=== PATIENT | male | born 1945 | race African-American/Black ===

== ENCOUNTER 2017-08-31 11:45 | Emergency (ER) | payer OTHER, MEDICARE ==
[2017-08-31] MEDS ORDERED: Ibuprofen 800 MG TAB ONE (12:19)
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
[2017-08-31] MEDS ORDERED: HYDROcodone/Acetaminophen 5/325 mg Tablet ONE (13:20)
== END 2017-08-31 13:53 | disposition home or self-care (01) ==
LOC: ERS 11:45
DX: S13.9XXA Sprain of joints and ligaments of unspecified parts of neck, initial encounter (principal); S23.3XXA Sprain of ligaments of thoracic spine, initial encounter; I10 Essential (primary) hypertension; Z87.891 Personal history of nicotine dependence; Z79.899 Other long term (current) drug therapy; V43.92XA Unspecified car occupant injured in collision with other type car in traffic accident, initial encounter
CPT/HCPCS: 72072; 72125

== ENCOUNTER 2017-09-06 07:43 | Emergency (ER) | payer MEDICARE ==
[2017-09-06] MEDS ORDERED: Ketorolac Tromethamine 60 MG/2 ML VIAL ONE (08:32)
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
== END 2017-09-06 10:03 | disposition home or self-care (01) ==
LOC: ERS 07:43
DX: S39.012A Strain of muscle, fascia and tendon of lower back, initial encounter (principal); I10 Essential (primary) hypertension; Z87.891 Personal history of nicotine dependence; Z79.899 Other long term (current) drug therapy; V49.9XXA Car occupant (driver) (passenger) injured in unspecified traffic accident, initial encounter
CPT/HCPCS: 72100; 96372; J1885

== ENCOUNTER 2017-12-20 10:19 | Outpatient (CLI) | payer MEDICARE, MEDICAID ==
[2017-12-20] MEDS ORDERED: Gadobenate Dimeglumine 529 MG/1 ML (20ML VIAL) ONE (11:23)
--- NOTE | 2017-12-20 15:23 | MRI ---
MRI OF ABDOMEN WITH AND WITHOUT CONTRAST 12/20/17 HISTORY: Followup treatment response of hepatic mass. COMPARISON: Multiple prior examinations at outside facility. FINDINGS: The mass in the hepatic dome, segment VIII has minimal peripheral enhancement with delayed fill-in. T his mass measures approximately 0.9 x 1 cm, slight decrease in the comparison exam. This indicates a positive treatment response. There is, however, what appears to be a new area of arterial hyperenhanc ement in hepatic segment V, series 9, image 1025 measuring up to 1.6 cm with arterial phase hyperenha ncement and portal venous washout. Left renal cysts and right renal cysts are similar. Aortic contour is normal. The pancreas is unremarkable. The spleen is unremarkable. Skeleton is unremarkable. IMPRESSION: 1. Interval treatment response hepatic dome mass with delayed internal enhancement likely sequel a of granulation tissue. 2. New arterial phase hyperenhancing mass measuring 1.6 cm hepatic segment V, series 9, image 10 25 with portal venous washout. This is concerning for a new focus of disease. 3. Similar appearance of renal cysts. Code T POS: [facility]
== END 2017-12-20 10:20 | disposition home or self-care (01) ==
LOC: BICMRI 10:19
PROVIDERS: ATTEND Internal Medicine
DX: C22.0 Liver cell carcinoma (principal); B19.20 Unspecified viral hepatitis C without hepatic coma; R16.0 Hepatomegaly, not elsewhere classified; N28.1 Cyst of kidney, acquired
CPT/HCPCS: 74183; 82565; A9579

== ENCOUNTER 2018-07-09 08:08 | Outpatient (CLI) | payer MEDICARE, MEDICAID ==
--- NOTE | 2018-07-09 09:38 | MRI ---
MRI Abdomen W WO Con History: [Chronic hepatitis. Hepatocellular carcinoma.] Comparison: MRI abdomen with and without contrast December 20, 2017 Findings: Multiplanar multisequence MRI of the abdomen performed prior to and after the intravenous a dministration of contrast. There is continued size decrease of the hepatic segment 8 mass at the dome of the liver measuring 5-6 mm. The arterial enhancing mass within hepatic segment 5 had previously measured 1.6 cm in AP dimension n ow measures approximately 2.2 cm. No new abnormal focal area of arterial hyperenhancement within the liver. The hepatic segment 5 mass does have portal venous washout. The portal vein is patent. Renal cysts are similar. No abnormal enhancing renal mass. There is a nonenhancing T2 hyperintense focus along the ventral aspect of the pancreatic body measuri ng 4 mm. Spleen is unremarkable. Adrenal glands are unremarkable. Small theodore hepatis lymph nodes. Impression: 1. Interval size increase of the hepatic segment V arterial enhancing mass with washout indicating di sease progression. No new foci of abnormal hyperenhancing hepatic masses. Portal vein is patent. 2. 4 mm cystic mass ventral pancreatic body. Close attention on follow-up imaging recommended.
[2018-07-09] MEDS ORDERED: Gadobenate Dimeglumine 529 MG/1 ML (20ML VIAL) ONE (16:58)
== END 2018-07-09 08:09 | disposition home or self-care (01) ==
LOC: MRI 08:08
PROVIDERS: ATTEND Physician Assistant Medical
DX: C22.0 Liver cell carcinoma (principal); B18.2 Chronic viral hepatitis C; K86.2 Cyst of pancreas; R16.0 Hepatomegaly, not elsewhere classified
CPT/HCPCS: 74183; 82565

== ENCOUNTER 2018-09-01 12:44 | Emergency (ER) | payer MEDICARE, MEDICAID | END 2018-09-01 13:25 | disposition home or self-care (01) | LOC: ERS 12:44 | DX: L29.9 Pruritus, unspecified (principal); T44.7X5A Adverse effect of beta-adrenoreceptor antagonists, initial encounter; Z87.891 Personal history of nicotine dependence | CPT/HCPCS: 99283 ==

== ENCOUNTER 2019-08-08 10:09 | Outpatient (CLI) | payer MEDICARE ==
[~2019-08-08 10:09] MED LIST: Magnevist 469MG/ML 20 ML VIAL ONE
--- NOTE | 2019-08-11 14:48 | MRI ---
MRI ABDOMEN WITH AND WITHOUT CONTRAST: HISTORY: Liver mass. C225, hepatic carcinoma. COMPARISON: Multiple prior MRIs. The most recent post contrast MRI is from 2019. FINDINGS: There is significant capsular retraction involving hepatic segments 4A, 4B, 5, 6, and 7. There is ca vity containing hemorrhage hepatic segment 4A and 4B with no significant internal enhancement. Previ ously noted hepatic segment 5 mass no longer has arterial hyperenhancement and washout and is intermi xed with a post-treatment scar. There are other peripherally enhancing necrotic foci in hepatic segm ent 8 near the dome. These are likely small treated satellite lesions. There is no dominant enhancing mass appreciated. Small right cardiophrenic lymph node is not enlarge d. No theodore hepatis adenopathy. Multiple cysts in the kidneys. No hydronephrosis. The aortic contour is normal. Background marrow signal is normal. No free fluid. There is compensatory hypertrophy of the left lobe of the liver. No dilated loops of bowel. IMPRESSION: 1. LR-TR nonviable. There is no remaining arterial enhancing mass appreciated within the liver. Th ere are mixed areas of necrosis and hemorrhage within cystic areas of liver which indicates treatment response. There is no arterial enhancing mass, only continuously enhancing scar within the treatmen t bed. 2. Patent portal vein. 3. Nonenhancing small satellite areas in hepatic segment 8 near the dome, treatment response, LR-TR not viable. 4. No new abnormal enhancing mass of the liver. POS: [facility]
== END 2019-08-08 10:10 | disposition home or self-care (01) ==
LOC: MRI 10:09
PROVIDERS: ATTEND Internal Medicine
DX: C22.0 Liver cell carcinoma (principal); K76.9 Liver disease, unspecified; K74.60 Unspecified cirrhosis of liver
CPT/HCPCS: 74183; 82565; A9579

== ENCOUNTER 2019-12-19 13:54 | Outpatient (CLI) | payer MEDICARE ==
--- NOTE | 2019-12-19 14:44 | ULT ---
Exam: Bilateral renal ultrasound HISTORY: Renal cyst. COMPARISON: 08/03/2016 CORRELATION abdomen MRI 08/08/2019 FINDINGS: Right kidney: Normal cortical echotexture. No hydronephrosis. 1.6 x 1.2 x 1.5 cm cyst in the midpole the right kidney. Right kidney measurements: 10.6 x 5.5 x 5.5 cm. Left kidney: Normal cortical echotexture. No hydronephrosis. There is a anechoic focus in the left ki dney with associated hyperechoic focus that measures 1.0 x 1.5 x 1.6 cm. Overall the anechoic focus measures 2.8 x 2.5 x 3.8 cm. Left kidney measurements 5.9 x 6.3 x 10.6 cm. Urinary bladder: Normal mucosa. 35.4 mL IMPRESSION: 1. Bilateral hydronephrosis 2. Right renal cortical cyst 3. Left renal cyst is identified with interval increased echogenicity which may represent debris or c alcification. No abnormal signal intensity noted in abdomen MRI. Findings may represent a relatively acute process. Follow-up imaging as warranted.
== END 2019-12-19 13:55 | disposition home or self-care (01) ==
LOC: BICULT 13:54
PROVIDERS: ATTEND Urology
DX: N28.1 Cyst of kidney, acquired (principal); N13.30 Unspecified hydronephrosis
CPT/HCPCS: 76770

== ENCOUNTER 2020-06-15 10:13 | Outpatient (CLI) | payer MEDICARE | END 2020-06-15 10:14 | disposition home or self-care (01) | LOC: BICULT 10:13 | PROVIDERS: ATTEND Urology | DX: N28.1 Cyst of kidney, acquired (principal); N28.89 Other specified disorders of kidney and ureter | CPT/HCPCS: 76770 ==

== ENCOUNTER 2021-01-20 08:59 | Outpatient (CLI) | payer MEDICARE, MEDICAID ==
[2021-01-20] MEDS ORDERED: Magnevist 469MG/ML 20 ML VIAL ONE (10:22)
== END 2021-01-20 09:00 | disposition home or self-care (01) ==
LOC: MRI 08:59
PROVIDERS: ATTEND Radiology Radiation Oncology
DX: Z51.0 Encounter for antineoplastic radiation therapy (principal); C22.0 Liver cell carcinoma
CPT/HCPCS: 74183

== ENCOUNTER 2021-03-14 02:12 | Inpatient (IN) | payer MEDICARE, MEDICAID ==
[2021-03-14] MEDS ORDERED: Morphine 4 MG/ML VIAL ONE ×2 (02:52→03:16)
[2021-03-14] MEDS ORDERED: Ondansetron PF 4 MG/2 ML Vial ONE (02:52)
[2021-03-14 03:24] LABS: ALT (SGPT) 43 U/L (8-55); AST (SGOT) 194 U/L (5-34); Albumin 3.5 g/dL (3.4-4.8); Alkaline Phosphatase 401 U/L (40-110); Anion Gap 15 mmol/L (10-20); BUN (Urea Nitrogen) 21 mg/dL (8.4-25.7); Bilirubin, Total 6.7 mg/dL (0.2-1.2); Calc. Creatinine Clearance 0 mL/min (70-130); Carbon Dioxide 25 mmol/L (23-31); Chloride 103 mmol/L (98-107); Glucose 96 mg/dL (83-110); Lipase 117 U/L (8-78); Potassium 3.9 mmol/L (3.5-5.1); Protein, Total 6.5 g/dL (5.8-8.1); Sodium 139 mmol/L (136-145)
[2021-03-14 03:55] LABS: #Eosinphils 0.3 thou/uL (0.0-0.7); #Lymphocytes 1.1 thou/uL (1.20-3.40); #Monocytes 0.9 thou/uL (0.11-0.59); #Neutrophils 4.7 thou/uL (1.40-6.50); %Basophils 0.2 % (0.0-1.0); %Eosinophils 3.8 % (0.0-10.0); %Lymphocytes 16.1 % (21.0-51.0); %Monocytes 12.8 % (0.0-10.0); %Neutrophils 67.2 % (42.0-75.0); Hemoglobin 13.1 g/dL (14.0-18.0); Mean Corpuscular HGB CONC 31.4 g/dL (32.0-36.0); Mean Corpuscular Hemoglobin 34.5 pg (27.0-31.0); Mean Platelet Volume 8.6 fL (7.4-10.4); Platelet Count 138 thou/uL (130-400); RBC Distribution Width 14.5 % (11.5-14.5); Red Blood Cell (RBC) Count 3.78 mill/uL (4.70-6.10)
[2021-03-14 07:36] LABS: Bilirubin Negative (Negative); Blood, Urine Negative (Negative); Clarity Clear (Clear); Glucose, Urine (Dipstick) Normal (Negative); Ketone, Urine Negative (Negative); Leukocyte Negative Leu/uL (Negative); Nitrite Negative (Negative); Protein, Urine (Dipstick) Negative (Neg-Trace); Specific Gravity, Urine 1.042 (1.002-1.036)
[2021-03-14 10:35] LABS: SARS-CoV-2 NAA Rapid Test Not Detected (NotDetected)
[2021-03-14] MEDS ORDERED: Morphine 2 MG/ML VIAL SLOW IVP PRN (11:45)
[2021-03-14] MEDS ORDERED: Ondansetron ODT 4 MG TAB PO PRN (12:30)
[2021-03-14] MEDS ORDERED: Acetaminophen 325 MG TAB PO PRN (12:30)
[2021-03-14] MEDS ORDERED: Ondansetron PF 4 MG/2 ML Vial IVP PRN (12:30)
[2021-03-14] MEDS: Sodium Chloride 0.9% 1,000 ML IV SCH ×2 (12:50→22:54)
[2021-03-14] MEDS: HYDROcodone/Acetaminophen 7.5/325 mg Tablet PO PRN (12:57)
[2021-03-14] MEDS: Heparin 5,000 UNITS/ML VIAL SC SCH ×2 (16:20→21:00)
[2021-03-14] MEDS ORDERED: Zoledronic Acid 4 MG in Sodium Chloride 0.9% 100 ML IVPB SCH (17:00)
[2021-03-14] MEDS: Morphine 4 MG/ML VIAL SLOW IVP PRN (17:02)
[2021-03-14] MEDS ORDERED: FLU VACC QS2021-22(65YR UP)/PF 240 MCG/0.7 ML SYRINGE IM ONE (19:30)
[2021-03-14] MEDS: Pantoprazole 40 MG VIAL IVP SCH (21:00)
[2021-03-15] MEDS: Sodium Chloride 0.9% 1,000 ML IV SCH ×2 (06:06→14:07)
[2021-03-15 06:33] LABS: Anion Gap 12 mmol/L (10-20); BUN (Urea Nitrogen) 19 mg/dL (8.4-25.7); Calc. Creatinine Clearance 79 mL/min (70-130); Calcium 11.7 mg/dL (7.8-10.44); Carbon Dioxide 24 mmol/L (23-31); Chloride 104 mmol/L (98-107); Glucose 88 mg/dL (83-110); Potassium 4.1 mmol/L (3.5-5.1); Sodium 136 mmol/L (136-145)
[2021-03-15 06:39] LABS: Troponin I 0.092 ng/mL (< 0.028)
[2021-03-15] MEDS: Morphine 4 MG/ML VIAL SLOW IVP PRN (06:52)
[2021-03-15 09:18] LABS: Troponin I 0.076 ng/mL (< 0.028)
[2021-03-15] MEDS: Pantoprazole 40 MG VIAL IVP SCH ×2 (09:26→22:24)
[2021-03-15] MEDS: Heparin 5,000 UNITS/ML VIAL SC SCH ×3 (09:26→20:24)
[2021-03-15 11:36] LABS: Troponin I 0.074 ng/mL (< 0.028)
[2021-03-15 20:35] LABS: Hemoglobin 12.1 g/dL (14.0-18.0); Mean Corpuscular HGB CONC 32.5 g/dL (32.0-36.0); Mean Corpuscular Hemoglobin 35.8 pg (27.0-31.0); Red Blood Cell (RBC) Count 3.37 mill/uL (4.70-6.10); White Blood Cell (WBC) Count 10.2 thou/uL (4.8-10.8)
[2021-03-15 20:50] LABS: #Eosinphils 0.2 thou/uL (0.0-0.7); #Lymphocytes 0.9 thou/uL (1.20-3.40); #Monocytes 1.3 thou/uL (0.11-0.59); %Basophils 0.1 % (0.0-1.0); %Eosinophils 2.1 % (0.0-10.0); %Monocytes 12.7 % (0.0-10.0); %Neutrophils 77.1 % (42.0-75.0); MDiff Complete? YES; Macrocytosis MODERATE=16-30 cells (100X) (0-5/hpf); Mean Platelet Volume 9.9 fL (7.4-10.4); Platelet Count 119 thou/uL (130-400); Platelet Morphology Comment Appears Decreased; Polychromasia SLIGHT = 2-3 cells (100X) (0-2/hpf); RBC Distribution Width 14.4 % (11.5-14.5); Target Cells SLIGHT = 2-5 cells (100X) (0-1/hpf)
[2021-03-16] MEDS: Sodium Chloride 0.9% 1,000 ML IV SCH ×4 (01:04→22:09)
[2021-03-16] MEDS ORDERED: Senokot S 8.6-50 MG TAB PO PRN (08:29)
[2021-03-16] MEDS ORDERED: Ondansetron ODT 4 MG TAB PO PRN (08:29)
[2021-03-16] MEDS ORDERED: Bisacodyl 5 MG TAB PO PRN (08:29)
[2021-03-16] MEDS ORDERED: GUAIFENESIN SF SOLN 200 MG/10 ML UDCUP PO PRN (08:29)
[2021-03-16] MEDS ORDERED: Sodium Chloride 0.65% Nasal 44 ML BOT EA NARE PRN (08:29)
[2021-03-16] MEDS ORDERED: Cepastat Lozenges 1 LOZ PO PRN (08:29)
[2021-03-16] MEDS ORDERED: Ondansetron PF 4 MG/2 ML Vial IVP PRN (08:29)
[2021-03-16] MEDS ORDERED: Hydrocerin (Eucerin) Cream 120 gm Jar TOP PRN (08:29)
[2021-03-16] MEDS ORDERED: Artificial Tear Sol 15 ML BOT EA EYE PRN (08:29)
[2021-03-16] MEDS ORDERED: Loperamide HCl 2 MG CAP PO PRN (08:29)
[2021-03-16] MEDS ORDERED: hydrALAZINE 20 MG/ML VIAL SLOW IVP PRN (08:29)
[2021-03-16] MEDS: Pantoprazole 40 MG VIAL IVP SCH ×2 (08:43→22:10)
[2021-03-16] MEDS: HYDROcodone/Acetaminophen 7.5/325 mg Tablet PO PRN (08:44)
[2021-03-16] MEDS ORDERED: Tamsulosin HCl 0.4 MG CAP PO SCH (09:00)
[2021-03-16] MEDS: Heparin 5,000 UNITS/ML VIAL SC SCH ×3 (09:50→22:09)
[2021-03-16] MEDS: Polyethylene Glycol 3350 17 GM Packet PO SCH (10:46)
[2021-03-16] MEDS: Folic Acid 1 MG TAB PO SCH (10:47)
[2021-03-16] MEDS: Tamsulosin HCl 0.4 MG CAP PO SCH (10:47)
[2021-03-16] MEDS: Cyanocobalamin (Vitamin B-12) 1,000 MCG TAB PO SCH (10:47)
[2021-03-17 05:15] LABS: #Eosinphils 0.3 thou/uL (0.0-0.7); #Lymphocytes 0.7 thou/uL (1.20-3.40); #Neutrophils 7.3 thou/uL (1.40-6.50); %Eosinophils 2.7 % (0.0-10.0); %Lymphocytes 7.7 % (21.0-51.0); %Monocytes 11.1 % (0.0-10.0); %Neutrophils 78.4 % (42.0-75.0); Hemoglobin 11.1 g/dL (14.0-18.0); Mean Corpuscular HGB CONC 33.4 g/dL (32.0-36.0); Mean Corpuscular Hemoglobin 36.6 pg (27.0-31.0); Mean Platelet Volume 9.7 fL (7.4-10.4); Platelet Count 100 thou/uL (130-400); RBC Distribution Width 14.6 % (11.5-14.5); Red Blood Cell (RBC) Count 3.02 mill/uL (4.70-6.10); White Blood Cell (WBC) Count 9.4 thou/uL (4.8-10.8)
[2021-03-17] MEDS: Sodium Chloride 0.9% 1,000 ML IV SCH ×3 (05:15→21:43)
[2021-03-17 05:21] LABS: INR-International Normal Ratio 1.1; Prothrombin Time 14.7 sec (12.0-14.7)
[2021-03-17 05:34] LABS: Anion Gap 14 mmol/L (10-20); BUN (Urea Nitrogen) 17 mg/dL (8.4-25.7); Calc. Creatinine Clearance 83 mL/min (70-130); Calcium 10.2 mg/dL (7.8-10.44); Carbon Dioxide 22 mmol/L (23-31); Chloride 106 mmol/L (98-107); Glucose 71 mg/dL (83-110); Sodium 138 mmol/L (136-145)
[2021-03-17 05:36] LABS: ALT (SGPT) 37 U/L (8-55); AST (SGOT) 183 U/L (5-34); Albumin 2.8 g/dL (3.4-4.8); Alkaline Phosphatase 319 U/L (40-110); Bilirubin, Direct 5.4 mg/dL (0.1-0.3); Bilirubin, Total 8.1 mg/dL (0.2-1.2)
[2021-03-17 05:42] LABS: Phosphorus 1.8 mg/dL (2.3-4.7)
[2021-03-17 05:49] VITALS: BMI 34.9
[2021-03-17] MEDS ORDERED: PHOS-NAK 1 PKT PACK PO SCH (06:45)
[2021-03-17] MEDS: Pantoprazole 40 MG VIAL IVP SCH (09:25)
[2021-03-17] MEDS: Lisinopril 5 MG TAB PO SCH (09:26)
[2021-03-17] MEDS: Cyanocobalamin (Vitamin B-12) 1,000 MCG TAB PO SCH (09:26)
[2021-03-17] MEDS: Polyethylene Glycol 3350 17 GM Packet PO SCH (09:26)
[2021-03-17] MEDS: Folic Acid 1 MG TAB PO SCH (09:26)
[2021-03-17] MEDS: Tamsulosin HCl 0.4 MG CAP PO SCH (09:26)
[2021-03-17] MEDS: Morphine 4 MG/ML VIAL SLOW IVP PRN (20:35)
[2021-03-18] MEDS ORDERED: PHOS-NAK 1 PKT PACK PO SCH (09:15)
[2021-03-18] MEDS: Polyethylene Glycol 3350 17 GM Packet PO SCH (09:27)
[2021-03-18] MEDS: Cyanocobalamin (Vitamin B-12) 1,000 MCG TAB PO SCH (09:28)
[2021-03-18] MEDS: Lisinopril 5 MG TAB PO SCH (09:28)
[2021-03-18] MEDS: Tamsulosin HCl 0.4 MG CAP PO SCH (09:28)
[2021-03-18] MEDS: Folic Acid 1 MG TAB PO SCH (09:28)
[2021-03-18 11:50] VITALS: TEMP 98.6
[2021-03-18 12:09] VITALS: BP 130/71
== END 2021-03-18 13:54 | disposition home or self-care (01) | DRG 542 ==
LOC: ERS 02:12 → ERHOLD 08:54 → SURG A 11:43 → OBSVTOIN 11:44 → 2NO 03-15 08:00
PROVIDERS: ADMIT Emergency Medicine; ATTEND Internal Medicine
DX: C79.51 Secondary malignant neoplasm of bone (principal); G93.41 Metabolic encephalopathy; I21.A1 Myocardial infarction type 2; C22.0 Liver cell carcinoma; N17.9 Acute kidney failure, unspecified; I42.9 Cardiomyopathy, unspecified; Z20.822 Contact with and (suspected) exposure to COVID-19; E83.52 Hypercalcemia; I10 Essential (primary) hypertension; M10.9 Gout, unspecified; E66.01 Morbid (severe) obesity due to excess calories; J44.9 Chronic obstructive pulmonary disease, unspecified; D53.9 Nutritional anemia, unspecified; F41.9 Anxiety disorder, unspecified; I44.7 Left bundle-branch block, unspecified; D69.6 Thrombocytopenia, unspecified; F32.A Depression, unspecified; Z87.891 Personal history of nicotine dependence; Z85.46 Personal history of malignant neoplasm of prostate; Z68.35 Body mass index [BMI] 35.0-35.9, adult
CPT/HCPCS: 36415; 70450; 74177; 77014; 77290; 77334; 80048; 80053; 80076; 81003; 82105; 82140; 83690; 83735; 83880; 84100; 84484; 85025; 85610; 93005; 93010; 93306; 96374; 96375; C9113; G0103; G0378; J1644; J2270; J2405; J3489; J3490; J7050; U0002

== ENCOUNTER 2021-03-21 15:45 | Emergency (ER) | payer MEDICARE, MEDICAID ==
[2021-03-21] MEDS ORDERED: Naloxone HCl 0.4 mg/ml Vial ONE ×2 (16:10→17:18)
== END 2021-03-21 17:50 | disposition home or self-care (01) ==
LOC: ERS 15:45
DX: T40.2X1A Poisoning by other opioids, accidental (unintentional), initial encounter (principal); I10 Essential (primary) hypertension
CPT/HCPCS: 96372; 99284; J2310

== ENCOUNTER 2021-04-16 01:50 | Inpatient (IN) | payer MEDICARE, MEDICAID ==
[2021-04-16 02:52] LABS: Hemoglobin 11.4 g/dL (14.0-18.0); Mean Corpuscular HGB CONC 30.9 g/dL (32.0-36.0); Mean Corpuscular Hemoglobin 35.8 pg (27.0-31.0); RBC Distribution Width 17.2 % (11.5-14.5); Red Blood Cell (RBC) Count 3.18 mill/uL (4.70-6.10)
[2021-04-16 03:07] LABS: ALT (SGPT) 42 U/L (8-55); AST (SGOT) 349 U/L (5-34); Alkaline Phosphatase 530 U/L (40-110); Anion Gap 26 mmol/L (10-20); BUN (Urea Nitrogen) 56 mg/dL (8.4-25.7); Bilirubin, Total 14.5 mg/dL (0.2-1.2); Calc. Creatinine Clearance 0 mL/min (70-130); Calcium 10.5 mg/dL (7.8-10.44); Carbon Dioxide 12 mmol/L (23-31); Chloride 113 mmol/L (98-107); Globulin 3.2 g/dL (2.4-3.5); Glucose 106 mg/dL (83-110); Protein, Total 6.2 g/dL (5.8-8.1); Sodium 146 mmol/L (136-145)
[2021-04-16 03:18] LABS: Anisocytosis SLIGHT = 6-15 cells (100X) (0-5/hpf); Band 7 % (5-11); Lymphocytes 15 % (21-51); MDiff Complete? YES; Macrocytosis MODERATE=16-30 cells (100X) (0-5/hpf); Mean Platelet Volume 10.2 fL (7.4-10.4); Metamyelocyte 2 % (0-0); Monocytes 6 % (0-10); Neutrophil 70 % (42-75); Nucleated RBC 3 % (0); Platelet Clumps SLIGHT; Platelet Count 78 thou/uL (130-400); Platelet Morphology Comment Appears Decreased; Polychromasia SLIGHT = 2-3 cells (100X) (0-2/hpf); White Blood Cell (WBC) Count 9.9 thou/uL (4.8-10.8)
[2021-04-16 03:28] LABS: CKMB 4.5 ng/mL (0-6.6)
[2021-04-16 04:21] LABS: Bacteria/HPF None Seen HPF (None Seen); Bilirubin 2+ (Negative); Blood, Urine 1+ (Negative); Clarity Turbid (Clear); Glucose, Urine (Dipstick) Normal (Negative); Ketone, Urine Trace mg/dL (Negative); Leukocyte Negative Leu/uL (Negative); Nitrite Negative (Negative); Protein, Urine (Dipstick) 70 mg/dL (Neg-Trace); Renal Epithelial 0-3 HPF (None Seen); Specific Gravity, Urine 1.019 (1.002-1.036); Squamous Epithelial 0-3 HPF (0-3); Urobilinogen 6 mg/dL (Less than 2); pH, Urine 5.5 (5.0-9.0)
[2021-04-16] MEDS ORDERED: Lorazepam 2 MG/ML VIAL ONE (05:43)
[2021-04-16] MEDS ORDERED: Acetaminophen 325 MG TAB PO PRN (07:44)
[2021-04-16] MEDS: cefTRIAXone\\ROCEPHIN 1 GM in Sodium Chloride 0.9% 100 ML IVPB SCH (09:00)
[2021-04-16] MEDS ORDERED: Azithromycin 500 MG VIAL ONE (09:14)
[2021-04-16] MEDS ORDERED: Pantoprazole 40 MG VIAL ONE (09:14)
[2021-04-16] MEDS ORDERED: cefTRIAXone\\ROCEPHIN 1 GM VIAL ONE (09:14)
[2021-04-16] MEDS: Azithromycin 500 MG in Sodium Chloride 0.9% 250 ML 250 ML IVPB SCH (09:45)
[2021-04-16] MEDS: Pantoprazole 40 MG VIAL IVP SCH (09:53)
[2021-04-16] MEDS: Sodium Bicarbonate 100 MEQ in Dextrose 5% in Water 1,000 ML IV SCH (10:05)
[2021-04-16 10:33] LABS: SARS-CoV-2 NAA Rapid Test Not Detected (NotDetected)
[2021-04-16 11:01] LABS: Creatinine, Urine 187.54 mg/dL (63-166)
[2021-04-16 15:32] LABS: Lactic Acid 3.7 mmol/L (0.5-2.2)
[2021-04-16 15:42] LABS: Troponin I 0.122 ng/mL (< 0.028)
[2021-04-16] MEDS ORDERED: FLU VACC QS2021-22(65YR UP)/PF 240 MCG/0.7 ML SYRINGE IM ONE (17:00)
[2021-04-16 18:01] LABS: Troponin I 0.112 ng/mL (< 0.028)
[2021-04-16] MEDS: Morphine 4 MG/ML VIAL SLOW IVP PRN ×2 (19:28→23:42)
[2021-04-16] MEDS: Lorazepam 2 MG/ML VIAL SLOW IVP PRN ×2 (19:28→23:42)
[2021-04-16 21:14] LABS: ALT (SGPT) 52 U/L (8-55); AST (SGOT) 496 U/L (5-34); Albumin 2.9 g/dL (3.4-4.8); Alkaline Phosphatase 513 U/L (40-110); Anion Gap 24 mmol/L (10-20); BUN (Urea Nitrogen) 57 mg/dL (8.4-25.7); Bilirubin, Total 14.2 mg/dL (0.2-1.2); Calc. Creatinine Clearance 0 mL/min (70-130); Calcium 10.3 mg/dL (7.8-10.44); Carbon Dioxide 12 mmol/L (23-31); Chloride 116 mmol/L (98-107); Globulin 3.5 g/dL (2.4-3.5); Glucose 71 mg/dL (83-110); Potassium 4.6 mmol/L (3.5-5.1); Protein, Total 6.4 g/dL (5.8-8.1); Sodium 147 mmol/L (136-145)
[2021-04-17] MEDS: Sodium Bicarbonate 100 MEQ in Dextrose 5% in Water 1,000 ML IV SCH ×3 (03:32→17:38)
[2021-04-17] MEDS: Pantoprazole 40 MG VIAL IVP SCH (08:28)
[2021-04-17] MEDS: cefTRIAXone\\ROCEPHIN 1 GM in Sodium Chloride 0.9% 100 ML IVPB SCH (08:28)
[2021-04-17] MEDS: Azithromycin 500 MG in Sodium Chloride 0.9% 250 ML 250 ML IVPB SCH (10:59)
[2021-04-17] MEDS: Morphine 4 MG/ML VIAL SLOW IVP PRN ×3 (12:24→21:05)
[2021-04-17 17:51] LABS: Hemoglobin 11.7 g/dL (14.0-18.0); Mean Corpuscular HGB CONC 31.8 g/dL (32.0-36.0); Mean Corpuscular Hemoglobin 37.1 pg (27.0-31.0); Mean Platelet Volume 9.6 fL (7.4-10.4); Platelet Count 81 thou/uL (130-400); RBC Distribution Width 17.6 % (11.5-14.5); Red Blood Cell (RBC) Count 3.16 mill/uL (4.70-6.10); White Blood Cell (WBC) Count 12.3 thou/uL (4.8-10.8)
[2021-04-17 18:04] LABS: ALT (SGPT) 56 U/L (8-55); AST (SGOT) 547 U/L (5-34); Albumin 2.8 g/dL (3.4-4.8); Alkaline Phosphatase 541 U/L (40-110); Anion Gap 25 mmol/L (10-20); BUN (Urea Nitrogen) 67 mg/dL (8.4-25.7); Bilirubin, Total 13.7 mg/dL (0.2-1.2); Calc. Creatinine Clearance 17 mL/min (70-130); Calcium 9.9 mg/dL (7.8-10.44); Carbon Dioxide 13 mmol/L (23-31); Chloride 113 mmol/L (98-107); Globulin 3.7 g/dL (2.4-3.5); Glucose 79 mg/dL (83-110); Potassium 5.1 mmol/L (3.5-5.1); Protein, Total 6.5 g/dL (5.8-8.1); Sodium 146 mmol/L (136-145)
[2021-04-17 18:08] LABS: Anisocytosis SLIGHT = 6-15 cells (100X) (0-5/hpf); Band 3 % (5-11); Eosinophils 1 % (0-10); Hypochromia SLIGHT = 6-15 cells (100X) (0-5/hpf); Lymphocytes 6 % (21-51); MDiff Complete? YES; Macrocytosis SLIGHT = 6-15 cells (100X) (0-5/hpf); Monocytes 10 % (0-10); Neutrophil 79 % (42-75); Nucleated RBC 2 % (0); Platelet Morphology Comment Appears Decreased; Polychromasia SLIGHT = 2-3 cells (100X) (0-2/hpf); Target Cells SLIGHT = 2-5 cells (100X) (0-1/hpf)
[2021-04-17] MEDS: Albumin 25% 25 GM/100 ML BOT IVPB SCH (21:04)
[2021-04-17] MEDS: Lorazepam 2 MG/ML VIAL SLOW IVP PRN (21:05)
[2021-04-18] MEDS: Sodium Bicarbonate 100 MEQ in Dextrose 5% in Water 1,000 ML IV SCH ×3 (03:20→21:50)
[2021-04-18] MEDS: Albumin 25% 25 GM/100 ML BOT IVPB SCH ×2 (04:18→12:48)
[2021-04-18 08:04] LABS: Hemoglobin 10.1 g/dL (14.0-18.0); Mean Corpuscular HGB CONC 30.8 g/dL (32.0-36.0); Mean Corpuscular Hemoglobin 35.6 pg (27.0-31.0); Mean Platelet Volume 9.5 fL (7.4-10.4); Platelet Count 82 thou/uL (130-400); RBC Distribution Width 17.8 % (11.5-14.5); Red Blood Cell (RBC) Count 2.84 mill/uL (4.70-6.10); White Blood Cell (WBC) Count 12.4 thou/uL (4.8-10.8)
[2021-04-18 08:14] LABS: ALT (SGPT) 49 U/L (8-55); AST (SGOT) 531 U/L (5-34); Albumin 2.9 g/dL (3.4-4.8); Alkaline Phosphatase 480 U/L (40-110); Anion Gap 26 mmol/L (10-20); BUN (Urea Nitrogen) 74 mg/dL (8.4-25.7); Bilirubin, Total 12.7 mg/dL (0.2-1.2); Calc. Creatinine Clearance 15 mL/min (70-130); Calcium 9.5 mg/dL (7.8-10.44); Carbon Dioxide 12 mmol/L (23-31); Chloride 114 mmol/L (98-107); Globulin 3.2 g/dL (2.4-3.5); Glucose 77 mg/dL (83-110); Potassium 5.4 mmol/L (3.5-5.1); Protein, Total 6.1 g/dL (5.8-8.1); Sodium 147 mmol/L (136-145)
[2021-04-18] MEDS ORDERED: Dextrose 50% Abboject 50 ML SYRINGE SLOW IVP STA (08:19)
[2021-04-18] MEDS ORDERED: Insulin Regular 300 UNITS/3 ML VIAL IVP SCH (08:30)
[2021-04-18] MEDS: cefTRIAXone\\ROCEPHIN 1 GM in Sodium Chloride 0.9% 100 ML IVPB SCH (09:04)
[2021-04-18] MEDS: Azithromycin 500 MG in Sodium Chloride 0.9% 250 ML 250 ML IVPB SCH (09:05)
[2021-04-18] MEDS: Pantoprazole 40 MG VIAL IVP SCH (09:07)
[2021-04-18] MEDS: Lorazepam 2 MG/ML VIAL SLOW IVP PRN (11:42)
[2021-04-18] MEDS: Morphine 4 MG/ML VIAL SLOW IVP PRN (18:13)
[2021-04-19 05:31] VITALS: BMI 25.5
[2021-04-19] MEDS: Pantoprazole 40 MG VIAL IVP SCH (08:41)
[2021-04-19] MEDS: cefTRIAXone\\ROCEPHIN 1 GM in Sodium Chloride 0.9% 100 ML IVPB SCH (08:41)
[2021-04-19 08:59] VITALS: BP 75/47; TEMP 98.3
[2021-04-19] MEDS: Sodium Bicarbonate 100 MEQ in Dextrose 5% in Water 1,000 ML IV SCH (10:50)
== END 2021-04-19 12:15 | disposition hospice, inpatient (51) | DRG 441 ==
LOC: ERS 01:50 → ERHOLD 04:38 → T4-A 16:13
PROVIDERS: ADMIT Internal Medicine; ATTEND Internal Medicine
DX: K72.90 Hepatic failure, unspecified without coma (principal); G92.9 Unspecified toxic encephalopathy; Z20.822 Contact with and (suspected) exposure to COVID-19; Z66 Do not resuscitate; N17.0 Acute kidney failure with tubular necrosis; K76.7 Hepatorenal syndrome; E87.0 Hyperosmolality and hypernatremia; I50.42 Chronic combined systolic (congestive) and diastolic (congestive) heart failure; E87.2 Acidosis; C22.0 Liver cell carcinoma; C79.51 Secondary malignant neoplasm of bone; I13.0 Hypertensive heart and chronic kidney disease with heart failure and stage 1 through stage 4 chronic kidney disease, or unspecified chronic kidney disease; D69.6 Thrombocytopenia, unspecified; D63.1 Anemia in chronic kidney disease; E83.52 Hypercalcemia; N18.2 Chronic kidney disease, stage 2 (mild); E88.09 Other disorders of plasma-protein metabolism, not elsewhere classified; F41.9 Anxiety disorder, unspecified; F32.A Depression, unspecified; K74.60 Unspecified cirrhosis of liver; E86.0 Dehydration; E87.5 Hyperkalemia; E66.9 Obesity, unspecified; Z92.3 Personal history of irradiation; Z79.899 Other long term (current) drug therapy; Z86.19 Personal history of other infectious and parasitic diseases; Z68.25 Body mass index [BMI] 25.0-25.9, adult
CPT/HCPCS: 36415; 36416; 71045; 74018; 76770; 80053; 81003; 81015; 82140; 82550; 82553; 82570; 83605; 84156; 84300; 84484; 84540; 85025; 85027; 87086; 93005; C9113; J0456; J0696; J1815; J2060; J2270; J3490; J7050; J7070; P9047; U0002

== ENCOUNTER 2021-04-19 12:36 | Inpatient (IN) | payer OTHER ==
[2021-04-19] MEDS ORDERED: Morphine 4 MG/ML VIAL SLOW IVP PRN (13:02)
[2021-04-19] MEDS ORDERED: Lorazepam 2 MG/ML VIAL ONE (13:04)
[2021-04-19] MEDS ORDERED: Lorazepam 2 MG/ML VIAL SLOW IVP PRN ×2 (13:15)
[2021-04-19] MEDS ORDERED: Haloperidol Lactate 5 MG/ML VIAL SLOW IVP PRN (13:15)
[2021-04-19] MEDS ORDERED: Ondansetron PF 4 MG/2 ML Vial IVP PRN (13:15)
[2021-04-19] MEDS ORDERED: Acetaminophen 650 MG Suppository PR PRN (13:15)
[2021-04-19] MEDS ORDERED: diphenhydrAMINE 50 MG/ML VIAL IVP PRN (13:15)
[2021-04-19] MEDS ORDERED: Promethazine HCl 25 MG SUPP PR PRN (13:15)
[2021-04-19] MEDS ORDERED: Scopolamine 1.5 mg/72 hour Patch TOP PRN (13:15)
[2021-04-19 13:35] VITALS: BMI 35.9
[2021-04-20 08:58] VITALS: BP 88/61; TEMP 99.2
== END 2021-04-20 15:27 | disposition expired | DRG 951 ==
LOC: T4-A 12:36
PROVIDERS: ADMIT Internal Medicine; ATTEND Internal Medicine
DX: Z51.5 Encounter for palliative care (principal); C22.0 Liver cell carcinoma; C79.9 Secondary malignant neoplasm of unspecified site; Z66 Do not resuscitate; I10 Essential (primary) hypertension; F41.9 Anxiety disorder, unspecified; F32.A Depression, unspecified; K74.60 Unspecified cirrhosis of liver; J44.9 Chronic obstructive pulmonary disease, unspecified; I25.10 Atherosclerotic heart disease of native coronary artery without angina pectoris; Z86.19 Personal history of other infectious and parasitic diseases
CPT/HCPCS: J2060; J2270